=== PATIENT | female | born 1985 | race Caucasian/White ===

== ENCOUNTER 2018-12-18 10:45 | Emergency (ER) | payer MEDICAID ==
[~2018-12-18] VITALS: Ht 157.5 cm; Wt 67.0 kg
[2018-12-18] MEDS ORDERED: ONDANSETRON HCL 4MG/2ML INJ IV STA (11:23)
[2018-12-18] MEDS ORDERED: SODIUM CHLORIDE 0.9% 1,000 ML IV ONE (11:23)
[2018-12-18] MEDS ORDERED: DEXAMETHASONE 10 MG/ML VIAL IV ONE (11:30)
[2018-12-18] MEDS ORDERED: MECLIZINE 25MG TABLET PO ONE (11:30)
[2018-12-18 11:53] LABS: CLARITY URINE CLEAR (CLEAR); COLOR URINE YELLOW (YELLOW); KETONES URINE NEGATIVE (NEGATIVE); LEUKOCYTE ESTERASE URINE NEGATIVE (NEGATIVE); NITRITE URINE NEGATIVE (NEGATIVE); OCCULT BLOOD URINE NEGATIVE (NEGATIVE); PH URINE 7.5 (4.5-8.0); PROTEIN URINE NEGATIVE (NEGATIVE); SPECIFIC GRAVITY URINE 1.003 (1.005-1.030); UROBILINOGEN URINE 0.2 E.U./dL (0.2-1.0)
[2018-12-18 11:54] LABS: BASOPHILS % 0.4 % (0.0-2.0); EOSINOPHILS % 0.3 % (0.0-5.0); HEMATOCRIT. 38.8 % (36.0-48.0); HEMOGLOBIN. 13.3 g/dL (12.0-16.0); LYMPHOCYTES % 14.3 % (20.0-50.0); MEAN CORPUSCULAR HEMOGLOBIN 32.3 pg (28.0-32.0); MEAN CORPUSCULAR VOLUME 94.4 fL (81.0-99.0); MEAN PLATELET VOLUME 8.5 fl (7.4-10.4); MONOCYTES % 3.8 % (2.0-8.0); NEUTROPHILS % 81.2 % (40.0-76.0); PLATELET 282 x1000/uL (130-400); RED BLOOD CELL COUNT 4.11 mill/uL (4.2-5.4); RED CELL DISTRIBUTION WIDTH 12.7 % (11.6-14.6)
[2018-12-18 11:58] LABS: CHLORIDE 108 mEq/L (98-107)
[2018-12-18 12:03] LABS: HCG SCREEN NEGATIVE
[2018-12-18 13:48] VITALS: BP 118/76
== END 2018-12-18 13:48 | disposition home or self-care (01) ==
LOC: ER 11:30
DX: R42 Dizziness and giddiness (principal); R03.0 Elevated blood-pressure reading, without diagnosis of hypertension
CPT/HCPCS: 36415; 70450; 71045; 80053; 81003; 81025; 84484; 84703; 85025; 93005; 96361; 96374; 96375; 99284; J1100; J2405; J7030; J8597

== ENCOUNTER 2021-07-05 08:51 | Emergency (ER) | payer SELFPAY ==
[~2021-07-05] VITALS: Ht 152.4 cm; Wt 66.0 kg
[2021-07-05] MEDS ORDERED: FAMOTIDINE 20MG TABLET PO ONE (09:30)
[2021-07-05] MEDS ORDERED: PREDNISONE 20MG TABLET PO SCH (09:30)
[2021-07-05] MEDS ORDERED: DIPHENHYDRAMINE 50MG CAPSULE PO ONE (09:30)
[2021-07-05] MEDS ORDERED: P20 MT (11:29)
[2021-07-05 11:40] VITALS: BP 123/71
== END 2021-07-05 11:56 | disposition home or self-care (01) ==
LOC: ER 08:51
DX: T78.40XA Allergy, unspecified, initial encounter (principal); Z98.890 Other specified postprocedural states; X58.XXXA Exposure to other specified factors, initial encounter
CPT/HCPCS: 99284; J7512; Q0163

== ENCOUNTER 2021-10-18 13:26 | Emergency (ER) | payer MEDICAID ==
[~2021-10-18] VITALS: Ht 160 cm; Wt 69.0 kg
[2021-10-18 13:30] VITALS: BP 136/90
[2021-10-18] MEDS ORDERED: LIDOCAINE HCL 1% 10 MG/ML 10ML VIAL IJ ONE (15:00)
[2021-10-18] MEDS ORDERED: BACITRACIN ZINC OINT UDPKT TOP ONE (15:00)
[2021-10-18] MEDS ORDERED: HYDROCODONE/ACETAMINOPHEN 5/325MG TABLET PO ONE (15:00)
[2021-10-18] MEDS ORDERED: LIDOCAINE HCL/PF 1% 10 MG/ML 5ML VIAL INFIL ONE (15:00)
[2021-10-18] MEDS ORDERED: ACET-2708 PO (18:24)
== END 2021-10-18 18:50 | disposition home or self-care (01) ==
LOC: ER 13:26
DX: S61.411A Laceration without foreign body of right hand, initial encounter (principal); Z90.49 Acquired absence of other specified parts of digestive tract; Z98.890 Other specified postprocedural states; W25.XXXA Contact with sharp glass, initial encounter; Y93.89 Activity, other specified; Y92.89 Other specified places as the place of occurrence of the external cause; Y99.8 Other external cause status
CPT/HCPCS: 12001; 99283; J3490

== ENCOUNTER 2021-10-21 11:40 | Emergency (ER) | payer MEDICAID ==
[~2021-10-21] VITALS: Ht 162.6 cm; Wt 59.0 kg
[~2021-10-21 11:40] MED LIST: ACET-2708 PO
[2021-10-21 12:01] VITALS: BP 122/66
== END 2021-10-21 14:22 | disposition home or self-care (01) ==
LOC: ER 11:40
DX: Z48.00 Encounter for change or removal of nonsurgical wound dressing (principal)
CPT/HCPCS: 99281

== ENCOUNTER 2021-10-31 11:21 | Emergency (ER) | payer MEDICAID ==
[~2021-10-31] VITALS: Ht 152.4 cm; Wt 59.0 kg
[2021-10-31 11:32] VITALS: BP 133/81
== END 2021-10-31 12:34 | disposition home or self-care (01) ==
LOC: ER 11:21
DX: Z48.02 Encounter for removal of sutures (principal)
CPT/HCPCS: 99281